=== PATIENT | male | born 1980 | race Caucasian/White ===

== ENCOUNTER 2017-05-23 17:48 | Emergency (ER) | payer OTHER ==
[2017-05-23] MEDS ORDERED: NITROGLYCERIN 2% 1 GM UD TOP ONE (18:59)
[2017-05-23] MEDS: NITROGLYCERIN 2% 1 GM UD TOP ONE (19:00)
[2017-05-23] MEDS ORDERED: ACTIVATED CHARCOAL PELLETS 25 GM BTTL ONE (19:01)
[2017-05-23] MEDS: ACTIVATED CHARCOAL PELLETS 25 GM BTTL PO ONE (19:04)
[2017-05-23] MEDS: SODIUM CHLORIDE 0.9% 1000ML 1,000 ML IVS ONE (19:34)
[2017-05-23] MEDS: HALOPERIDOL TAB 1 MG TAB PO ONE (22:01)
[2017-05-24 00:19] VITALS: O2SAT 95
--- NOTE | 2017-05-24 00:43 | ED.PDOC ---
History of Present Illness - General Chief Complaint: Drug or Alcohol Abuse Stated Complaint: overdose Time Seen by Provider: 05/23/17 17:49 Source: patient Exam Limitations: no limitations - History of Present Illness Initial Comments: The patient is a 36-year-old male presented to the emergency room after having swallowed $150 worth of methamphetamine in an attempt to kill himself. He has a previous suicide attempt according to himself. He did not call the ambulance someone else did. The patient is pretty straightforward with us on questioning. He is not having any chest pain or palpitations. He is very mildly diaphoretic. Pupils are dilated. Skin slightly flushed. He is alert and oriented and interactive. He is not hyperactive. He reports seeing some mild visual abnormality since taking this. He did not ingest any other substances. Timing/Duration: 1-3 hours Severity: moderate Improving Factors: nothing Worsening Factors: nothing Associated Symptoms: denies symptoms Allergies/Adverse Reactions: Allergies NO KNOWN ALLERGY Allergy (Verified 05/23/17 18:08) Review of Systems - Review of Systems Constitutional: States: no symptoms reported EENTM: States: no symptoms reported Respiratory: States: no symptoms reported Cardiology: States: no symptoms reported Gastrointestinal/Abdominal: States: no symptoms reported Genitourinary: States: no symptoms reported Skin: States: no symptoms reported Neurological: States: depressed Endocrine: States: no symptoms reported All other Systems: No Change from Baseline Past Medical History (General) - Patient Medical History Surgical History: other - Vaccination History Hx Influenza Vaccination: Yes - Social History Hx Tobacco Use: Yes - vapor cig Hx Depression: Yes Family Medical History - Family History Mother Family History: Unknown Physical Exam - Physical Exam General Appearance: Alert, No apparent distress Eye Exam: bilateral other - pupils are dilated bilaterally Ears, Nose, Throat: hearing grossly normal, normal ENT inspection, normal pharynx Neck: full range of motion, supple Respiratory: chest non-tender, lungs clear, normal breath sounds, no respiratory distress, no accessory muscle use Cardiovascular/Chest: normal peripheral pulses, regular rate, rhythm, no edema Peripheral Pulses: radial,right: 2+, radial,left: 2+, dorsalis pedis,right: 2+, dorsalis pedis,left: 2+, posterior tibialis,right: 2+, posterior tibialis,left: 2+ Gastrointestinal/Abdominal: non tender, soft Rectal Exam: deferred Back Exam: normal inspection, no CVA tenderness, no vertebral tenderness Extremity: normal range of motion, non-tender, normal inspection, no pedal edema , normal capillary refill Neurologic: qc chemist II-XII nml as tested, no motor/sensory deficits, alert, oriented x 3, other - affect is fairly flat Skin Exam: other - flushed Comments: Vital Signs - 24 hr 05/23/17 05/23/17 05/23/17 17:48 19:26 20:00 Temperature 97.0 F L Pulse Rate 90 Pulse Rate [ 97 H 90 90 pulse ox] Respiratory 20 18 20 Rate Blood Pressure 141/97 181/109 162/92 [Right Arm] O2 Sat by Pulse 100 96 97 Oximetry 05/23/17 05/23/17 05/23/17 21:17 22:00 23:00 Temperature Pulse Rate 109 H Pulse Rate [ 106 H 110 H 80 pulse ox] Respiratory 20 20 20 Rate Blood Pressure 168/93 150/88 154/76 [Right Arm] O2 Sat by Pulse 98 97 97 Oximetry 05/24/17 00:15 Temperature Pulse Rate Pulse Rate [ 71 pulse ox] Respiratory 20 Rate Blood Pressure 171/89 [Right Arm] O2 Sat by Pulse 95 Oximetry Progress - Progress Progress: 05/24/17 00:45 the patient is a 36-year-old male presenting after a suicide attempt with ingestion of methamphetamine. The patient has been monitored for approximately 6 hours and appears to be doing fairly well. Mild visual hallucinations have subsided with the dose of Haldol. He has received a liter of IV fluids. He has met with [facility] and is willing to go to the crisis care unit. Telemetry monitoring has remained stable. Blood pressures have been mildly elevated but not unreasonable. Lab work is reassuring at this point. the patient will go to the crisis care unit. - Results/Orders Results/Orders: Laboratory Tests 05/23/17 05/23/17 05/23/17 18:40 18:40 18:40 WBC 7.9 RBC 4.90 Hgb 16.4 Hct 46.6 MCV 95.1 H MCH 33.4 H MCHC 35.1 RDW 13.2 Plt Count 241 MPV 9.5 Absolute Neuts (auto) 6.40 Absolute Lymphs (auto) 0.70 L Absolute Monos (auto) 0.80 Absolute Eos (auto) 0.00 Absolute Basos (auto) 0.00 Neutrophils % 80.3 H Lymphocytes % 9.4 L Monocytes % 9.8 H Eosinophils % 0.0 L Basophils % 0.5 Sodium 140 Potassium 3.7 Chloride 104 Carbon Dioxide 23 Anion Gap 16.7 BUN 19 H Creatinine 0.86 BUN/Creatinine Ratio 22.1 H Random Glucose 123 H Serum Osmolality 283.0 Calcium 9.5 Total Bilirubin 1.3 H AST 38 ALT 68 H Alkaline Phosphatase 54 Creatine Kinase 221 H* CK-MB (CK-2) 3.8 CK-MB (CK-2) % Not Reportable Troponin I < 0.02 Serum Total Protein 8.1 Albumin 5.3 Globulin 2.8 Albumin/Globulin Ratio 1.9 Acetaminophen < 10.0 L EKG showsnormal sinus rhythm. Normal axis. Normal QT interval. Normal R-wave progression. No abnormal ST segments concerning for ischemia immediately. Departure - Departure Clinical Impression: Substance abuse Suicide attempt by substance overdose Qualifiers: Encounter type: initial encounter Qualified Code(s): T65.92XA - Toxic effect of unspecified substance, intentional self-harm, initial encounter Depression Qualifiers: Depression Type: unspecified Qualified Code(s): F32.9 - Major depressive disorder, single episode, unspecified Disposition: Discharge to Home or Self Care Condition: Fair Departure Forms: ED Discharge - Pt. Copy, Patient Portal Self Enrollment Instructions: DI for Drug Overdose in Adults Diet: regular diet Activity: increase activity as tolerated Additional Instructions: the patient is a 36-year-old male presenting after a suicide attempt with ingestion of methamphetamine. The patient has been monitored for approximately 6 hours and appears to be doing fairly well. Mild visual hallucinations have subsided with the dose of Haldol. He has received a liter of IV fluids. the patient did receive activated charcoal. He has met with [facility] and is willing to go to the crisis care unit. Telemetry monitoring has remained stable. Blood pressures have been mildly elevated but not unreasonable. Lab work is reassuring at this point. the patient will go to the crisis care unit.
[2017-05-24 01:02] VITALS: BP 177/78; TEMP 97.8
== END 2017-05-24 01:01 | disposition home or self-care (01) ==
LOC: ER 17:48
DX: T43.622A Poisoning by amphetamines, intentional self-harm, initial encounter (principal); R44.1 Visual hallucinations; F17.200 Nicotine dependence, unspecified, uncomplicated; F32.9 Major depressive disorder, single episode, unspecified; Y92.9 Unspecified place or not applicable
CPT/HCPCS: 36415; 80053; 80329; 82550; 82553; 84484; 85025; 93005; J2060; J7030